=== PATIENT | male | born 1985 | race Two or more races ===

== ENCOUNTER 2016-03-05 20:17 | Emergency (ER) | payer SELFPAY ==
[~2016-03-05] VITALS: Ht 177.8 cm; Wt 77.1 kg
[2016-03-05 20:44] VITALS: BP 110/61
[2016-03-05 23:30] VITALS: BP 108/79
[2016-03-06 01:30] VITALS: BP 111/71
[2016-03-06 02:56] LABS: ALANINE AMINOTRANSFERASE 52 U/L (3-41); ALBUMIN/GLOBULIN RATIO 1.3 (1.0-2.7); ALCOHOL 288 mg/dL; ANION GAP 21 (5-15); ASPARTATE AMINO TRANSFERASE 41 U/L (5-40); CALCIUM 9.1 mg/dL (8.6-10.2); CARBON DIOXIDE 23 mEQ/L (20-30); CHLORIDE 98 mEQ/L (98-107); CREATININE 0.7 mg/dL (0.7-1.2); GLOMERULAR FILTRATION RATE > 60 mL/min (>60); HEMOLYSIS 67; SODIUM 142 mEQ/L (135-145); TOTAL PROTEIN 7.7 g/dL (6.6-8.7)
[2016-03-06 03:30] VITALS: BP 119/64
[2016-03-06 03:33] LABS: BASOPHILS % (AUTO) 0.7 % (0.0-2.0); EOSINOPHILS % (AUTO) 0.2 % (0.0-3.0); LYMPHOCYTES % (AUTO) 11.8 % (20.0-45.0); MEAN CORPUSCULAR HEMOGLOBIN 30.1 PG (27.0-31.0); MEAN CORPUSCULAR HGB CONC 32.1 G/DL (32.0-36.0); MEAN CORPUSCULAR VOLUME 94 FL (80-99); MONOCYTES % (AUTO) 6.1 % (1.0-10.0); NEUTROPHILS % (AUTO) 81.3 % (45.0-75.0); PLATELET COUNT 204 K/UL (150-450); RED BLOOD COUNT 6.69 M/UL (4.70-6.10); RED CELL DISTRIBUTION WIDTH 12.8 % (11.6-14.8); WHITE BLOOD COUNT 13.3 K/UL (4.8-10.8)
[2016-03-06 05:38] VITALS: BP 104/74
[2016-03-06 05:44] VITALS: BP 104/74
--- NOTE | 2016-03-06 11:52 | Emergency Room Report ---
History of Present Illness General Chief Complaint: Alcohol Intoxication Present Illness HPI The pt is a 31 yo M BIBA for possible alcohol intoxication. The pt is unable to provide any information at this time. Paramedics note patient was asleep in a parking lot. Allergies: Coded Allergies: UNABLE TO ASSESS (Unverified , 03/05/16) Patient History Past Medical History: see triage record Pertinent Family History: unable to obtain Review of Systems All Other Systems: negative except mentioned in HPI Physical Exam Vital Signs Date Time Temp Pulse Resp B/P Pulse Ox O2 Delivery O2 Flow Rate FiO2 03/05/16 20:07 94.5 79 16 102/81 94 Room Air Sp02 EP Interpretation: reviewed, normal General Appearance: no apparent distress, lethargic Head: normocephalic, atraumatic Eyes: bilateral eye PERRL, bilateral eye normal inspection ENT: hearing grossly normal, normal pharynx, no angioedema, normal voice Neck: full range of motion, supple/symm/no masses Respiratory: chest non-tender, lungs clear, normal breath sounds, speaking full sentences Cardiovascular #1: regular rate, rhythm, no edema Musculoskeletal: back normal, gait/station normal - at time of elopement, normal range of motion, non-tender Neurologic: responsive, sensory intact Psychiatric: no suicidal/homicidal ideation Skin: no rash, warm/dry, palpation normal Medical Decision Making PA Attestation Dr. Valdez is my supervising physician. Patient management was discussed with my supervising physician Diagnostic Impression: Primary Impression: Acute alcoholic intoxication ER Course The pt is a 31 yo M BIBA for possible alcohol intoxication. DDx: alcohol intoxication, drug abuse, psychosis PE: vitals wnl. afebrile. NAD. sleeping Head NC/AT.PERRL. Skin warm and dry. Arousal to touch Mild leukocytosis, AST/ALT mildly elevated. Serum alcohol markedly elevated The pt was given time to rest in the ER and has eloped. At time of elopement, ambulating well. Laboratory Tests Test 03/05/16 23:23 03/06/16 02:50 03/06/16 02:55 Sodium Level 142 mEQ/L (135-145) Potassium Level 4.0 mEQ/L (3.4-4.9) Chloride Level 98 mEQ/L (98-107) Carbon Dioxide Level 23 mEQ/L (20-30) Anion Gap 21 (5-15) H Blood Urea Nitrogen 5 mg/dL (7-23) L Creatinine 0.7 mg/dL (0.7-1.2) Estimate Glomerular Filtration Rate > 60 mL/min (>60) Glucose Level 106 mg/dL (74-106) Calcium Level 9.1 mg/dL (8.6-10.2) Total Bilirubin 0.5 mg/dL (0.0-1.2) Aspartate Amino Transferase (AST) 41 U/L (5-40) H Alanine Aminotransferase (ALT) 52 U/L (3-41) H Alkaline Phosphatase 61 U/L (40-129) Total Protein 7.7 g/dL (6.6-8.7) Albumin 4.4 g/dL (3.5-5.2) Globulin 3.3 g/dL Albumin/Globulin Ratio 1.3 (1.0-2.7) Serum Alcohol 288 mg/dL 252 mg/dL White Blood Count 13.3 K/UL (4.8-10.8) H Red Blood Count 6.69 M/UL (4.70-6.10) H Hemoglobin 20.1 G/DL (14.2-18.0) *H Hematocrit 62.8 % (42.0-52.0) H Mean Corpuscular Volume 94 FL (80-99) Mean Corpuscular Hemoglobin 30.1 PG (27.0-31.0) Mean Corpuscular Hemoglobin Concent 32.1 G/DL (32.0-36.0) Red Cell Distribution Width 12.8 % (11.6-14.8) Platelet Count 204 K/UL (150-450) Mean Platelet Volume 9.0 FL (6.5-10.1) Neutrophils (%) (Auto) 81.3 % (45.0-75.0) H Lymphocytes (%) (Auto) 11.8 % (20.0-45.0) L Monocytes (%) (Auto) 6.1 % (1.0-10.0) Eosinophils (%) (Auto) 0.2 % (0.0-3.0) Basophils (%) (Auto) 0.7 % (0.0-2.0) Lab Results Impression Mild leukocytosis, AST/ALT mildly elevated. Serum alcohol markedly elevated Last Vital Signs Date Time Temp Pulse Resp B/P Pulse Ox O2 Delivery O2 Flow Rate FiO2 03/06/16 05:44 97.1 97 18 104/74 98 Room Air Status: improved Disposition: ELOPED Condition: Stable Referrals: NOT CHOSEN EDDIE/,REFERRING (PCP) TIMA MCKENZIE Mar 06, 2016 11:52
== END 2016-03-06 05:55 | disposition left against medical advice (07) ==
LOC: EDBD 20:17 → EMR 20:55
DX: F10.129 Alcohol abuse with intoxication, unspecified (principal)
CPT/HCPCS: 36415; 80053; 85025; 99284; G0480; 80329